=== PATIENT | female | born 1950 | race Caucasian/White ===

== ENCOUNTER → 2020-11-16 | Outpatient (CLI) | payer MEDICARE ==
--- NOTE | 2020-11-16 12:30 | RAD ---
US FNA BIOPSY 1ST LESION History:Reason: RT THYROID NODULE / Spl. Instructions: / History: Comparison: None. Procedure: The risks, alternatives, and benefits of the procedure are discussed with the patient. Written inform ed consent is obtained. A time out procedure is performed. Neck prepped and draped in normal sterile fashion. 1% lidocaine was injected into the skin and soft tissue along route to the nodule of the thyroid. 4 s eparate passes were made with a 22-gauge needle. To and fro movement of the needle was performed in t he nodule. Hemostasis is achieved. The patient tolerated the procedure well. There is no immediate co mplication. IMPRESSION: 1. Ultrasound guided fine needle aspiration of a RIGHT inferior thyroid nodule. Electronically signed by: Mc Mabry DO (11/16/2020 12:27 PM) [id number]
== END | disposition home or self-care (01) ==
LOC: US 10:35
PROVIDERS: ATTEND Family Medicine
DX: E04.1 Nontoxic single thyroid nodule (principal)
CPT/HCPCS: 10005